=== PATIENT | male | born 1990 | race Caucasian/White ===

== ENCOUNTER 2022-07-07 08:42 | Emergency (ER) | payer OTHER, MEDICAID, SELFPAY ==
[2022-07-07] VITALS (24 sets, daily range): BP systolic 106–130; BP diastolic 66–82; PULSE 91–125; RESP 14–23; TEMP 37.1; O2SAT 98–100; BMI 19.8
--- NOTE | 2022-07-07 09:03 | ED.GENADULT ---
HPI - General Adult General Stated complaint: sent by [facility] heart issues, jaundice Time Seen by Provider: 07/07/22 08:46 Related Data Allergies Allergy/AdvReac Type Severity Reaction Status Date / Time No Known Drug Allergies Allergy Unverified 03/20/22 14:27 Patient History Medical History (Updated 07/06/22 @ 16:00 by Sharon Zaldivar PA-C) Immunization counseling Palpitations Travel advice encounter Social History Smoking Status: Never smoker Smoking Status: Never smoker Discharge Plan Departure Referrals: Nabil Varner DO [Primary Care Provider] -
--- NOTE | 2022-07-07 09:25 | ED_ITS ---
HPI - General Adult General Chief complaint: Abdominal Pain Stated complaint: sent by [facility] heart issues, jaundice Time Seen by Provider: 07/07/22 08:46 Source: patient and family Mode of arrival: Ambulatory History of Present Illness HPI narrative: 32-year-old gentleman with a history of gilbert's syndrome who presents with 2weeks of painless jaundice. He describes no fevers, cough, palpitations but has noticed that he has been tachycardic and describes his resting heart rate at about twice his usual baseline heart rate. He describes some mid epigastric/upper abdominal pain that feels like up pressure that also feels like it is causing increased reflux like symptoms. He has had no vomiting. Describes his stool as normal colored, volume, texture. He has had no headaches, weakness, paresthesias. He reports that he occasionally drinks an over the last couple of weeks got together with some friends and had 2 episodes where he drank to excess without vomiting or blackout episodes. Describes no recent trauma. He also notes that he has had increasing lower extremity edema which is unusual for him. Related Data Allergies Allergy/AdvReac Type Severity Reaction Status Date / Time No Known Drug Allergies Allergy Unverified 03/20/22 14:27 Review of Systems Review of Systems Narrative: Remainder of complete review of systems is otherwise unremarkable except for that included in the HPI. Patient History Medical History Gilbert's syndrome Palpitations Social History Smoking Status: Never smoker Smoking Status: Never smoker Substance Use Type: marijuana Exam Initial Vital Signs Initial Vital Signs: Vital Signs Pulse Rate 125 H 07/07/22 08:52 Pulse Oximetry 100 07/07/22 08:52 General: Healthy appearing, in no acute distress. Able to give a complete and coherent history. Well-nourished well-developed HEENT: Moist mucous membranes, notably jaundiced sclera with reactive pupils, Neck: No JVD, supple Respiratory: Lungs are clear to auscultation, no wheezing no rales no rhonchi. Full and symmetrical air movement Cardiac: Tachycardic without murmurs Abdomen: Soft, minimally tender over the upper abdomen without rebound or guarding. No appreciable hepatosplenomegaly. Good bowel tones, no flank pain Skin: Jaundice but otherwise Warm and dry, no rashes, no telangiectasias, no palmar erythema Neurologic: Grossly neurologically intact with no obvious asymmetries or abnormalities Extremities: No trauma, well perfused, 1+ pretibial edema Psych: Cooperative, appropriate insight and affect Course Orders Ordered: ED Orders 07/07/22 08:55 Bilirubin Conjugated Stat Bilirubin Direct Stat Complete Blood Count AUTO DIFF Stat Comprehensive Metabolic Panel Stat Ethanol (ETOH) Stat Lactate (Lactic Acid) Stat Lipase Stat Magnesium Stat 07/07/22 09:26 CT abdomen pelvis w con Stat 07/07/22 09:33 COVID19 -Nasal RAPID/Pre-Proc Stat 07/07/22 09:49 Blood Culture Stat Hepatitis Acute Panel Stat PTT [Partial Thromboplastin Time] Stat Prothrombin Time INR Stat 07/07/22 10:30 Ictotest Urine Stat Urinalysis and Microscopic Stat Urine Culture Stat 07/07/22 11:27 MRCP [MR abdomen wo/w con] Stat 07/07/22 16:48 BMP [Basic Metabolic Panel] Stat Discontinued Medications Sodium Chloride (Normal Saline 0.9%) 1,000 mls @ 1,000 mls/hr IV BOLUS ONE Stop: 07/07/22 10:24 Last Infusion: 07/07/22 11:28 Dose: 0 mls/hr Documented By: Admin: 07/07/22 10:33 Dose: 1,000 mls/hr Documented By: JOHANA POTASSIUM CHLORIDE IN WATER (Potassium Cl 10 Meq/100 Ml Radha) 10 meq in 100 mls @ 100 mls/hr IV Q1H MALLORIE Stop: 07/07/22 15:29 Last Admin: 07/07/22 16:46 Dose: 100 mls/hr Documented By: Infusion: 07/07/22 16:42 Dose: 0 mls/hr Documented By: Admin: 07/07/22 15:12 Dose: 100 mls/hr Documented By: Infusion: 07/07/22 15:08 Dose: 0 mls/hr Documented By: Admin: 07/07/22 14:03 Dose: 100 mls/hr Documented By: Infusion: 07/07/22 14:00 Dose: 100 mls/hr Documented By: Admin: 07/07/22 13:00 Dose: 100 mls/hr Documented By: JOHANA Sodium Chloride (Normal Saline 0.9%) 1,000 mls @ 1,000 mls/hr IV BOLUS ONE Stop: 07/07/22 17:07 Potassium Chloride (Potassium Chloride 20 Meq Tab) 40 meq PO NOW ONE Stop: 07/07/22 11:29 Last Admin: 07/07/22 13:05 Dose: 40 meq Documented By: JOHANA(2) Vital Signs Vital signs: Vital Signs - 8 hr 07/07/22 10:00 07/07/22 10:00 07/07/22 10:28 Pulse Rate 116 H Respiratory Rate Blood Pressure 121/77 128/78 Pulse Oximetry 99 07/07/22 10:28 07/07/22 10:30 07/07/22 10:30 Pulse Rate 111 H 110 H Respiratory Rate Blood Pressure 125/79 Pulse Oximetry 99 100 07/07/22 11:00 07/07/22 11:00 07/07/22 11:30 Pulse Rate 104 H Respiratory Rate Blood Pressure 119/76 123/82 Pulse Oximetry 100 07/07/22 11:30 07/07/22 12:00 07/07/22 12:00 Pulse Rate 105 H 109 H Respiratory Rate Blood Pressure 120/80 Pulse Oximetry 100 99 07/07/22 13:08 07/07/22 13:09 07/07/22 13:09 Pulse Rate 104 H 104 H Respiratory Rate Blood Pressure 110/67 Pulse Oximetry 98 99 07/07/22 13:30 07/07/22 13:30 07/07/22 14:00 Pulse Rate 102 H Respiratory Rate 16 Blood Pressure 111/70 107/68 Pulse Oximetry 99 07/07/22 14:00 07/07/22 14:30 07/07/22 14:30 Pulse Rate 102 H 100 H Respiratory Rate 14 14 Blood Pressure 111/67 Pulse Oximetry 99 100 07/07/22 15:00 07/07/22 15:00 07/07/22 15:29 Pulse Rate 102 H 99 H Respiratory Rate 23 19 Blood Pressure 110/72 Pulse Oximetry 99 100 07/07/22 15:29 07/07/22 15:30 07/07/22 15:30 Pulse Rate 98 H Respiratory Rate 21 Blood Pressure 109/72 109/74 Pulse Oximetry 100 07/07/22 15:52 07/07/22 15:52 07/07/22 16:00 Pulse Rate 106 H Respiratory Rate 16 Blood Pressure 108/74 111/72 Pulse Oximetry 100 07/07/22 16:00 07/07/22 16:30 07/07/22 16:30 Pulse Rate 96 H 97 H Respiratory Rate 17 21 Blood Pressure 110/69 Pulse Oximetry 100 99 07/07/22 17:00 07/07/22 17:00 Pulse Rate 97 H Respiratory Rate Blood Pressure 106/68 Pulse Oximetry 99 Medical Decision Making Lab Data Result diagrams: 07/07/22 08:55 07/07/22 16:48 Labs: Lab Results 07/07/22 07/07/22 07/07/22 Range/Units 08:55 08:55 08:55 WBC 7.6 (4.5-11.0) X10^3/uL RBC 3.48 L (4.5-5.9) X10^6/uL Hgb 11.3 L (13.5-17.5) g/dL Hct 32.3 L (41-53) % MCV 92.7 (80-100) fL MCH 32.5 (26-34) PG MCHC 35.0 (30-36) % RDW 17.2 H (11.6-14.8) % Plt Count 206 (150-400) X10^3/uL Neut % (Auto) 79.4 H (50-75) % Lymph % (Auto) 10.1 L (25-40) % [place] % (Auto) 10.3 (3-14) % Eos % (Auto) 0.0 L (2-4) % Baso % (Auto) 0.2 (0-2) % Neut # (Auto) 6000 (0701-5841) /uL Lymph # (Auto) 800 L (5760-1598) /uL [place] # (Auto) 800 (0-900) /uL Eos # (Auto) 0 (0-450) /uL Baso # (Auto) 0 (0-100) /uL PT (10.1-12.7) SECONDS INR (0.9-1.3) APTT (26-36) SECONDS Sodium 123 L (137-145) mmol/L Potassium 2.6 L* (3.4-5.1) mmol/L Chloride 76 L* (98-107) mmol/L Carbon Dioxide 35 H (22-32) mmol/L BUN 13 (9-20) mg/dL Creatinine 0.86 (0.66-1.25) mg/dL Estimated GFR > 60 (>60) mL/min BUN/Creatinine Ratio 15.1 (6-22) Glucose 130 H (70-100) mg/dL Lactate 6.0 H* (0.7-2.1) mmol/L Calcium 8.4 (8.4-10.2) mg/dL Magnesium 1.7 (1.6-2.3) mg/dL Total Bilirubin 7.3 H (0.2-1.3) mg/dL Direct Bilirubin (0.0-0.4) mg/dL Conjugated Bilirubin (0.0-0.3) md/dL AST 582 H (17-59) IU/L ALT 205 H (<50) IU/L Alkaline Phosphatase 342 H (38-126) U/L Total Protein 6.4 (6.3-8.2) g/dL Albumin 3.0 L (3.5-5.0) g/dL Globulin 3.4 (1.7-4.1) g/dL Albumin/Globulin Ratio 0.9 L (1.0-2.8) Lipase 735 H (23-300) U/L Urine Color Urine Appearance Urine pH (4.5-8.0) Ur Specific [place] (1.000-1.035) Urine Protein (Negative) Urine Glucose (UA) (Negative) g/dL Urine Ketones (NEGATIVE) Urine Occult Blood (Negative) Urine Nitrate (Negative) Urine Bilirubin (NEGATIVE) Ur Bilirubin Confirm (Negative) Urine Urobilinogen (0.2) E.U./dL Ur Leukocyte Esterase (NEGATIVE) Urine RBC (0-5/HPF) Urine WBC (0-5/HPF) Calcium Oxalate Crystal Urine Bacteria (None) Urine Mucus (Negative) Ur Culture Indicated? Ethyl Alcohol < 10 ( - 10) mg/dL SARS-CoV-2 (PCR) (Negative) 07/07/22 07/07/22 07/07/22 Range/Units 08:55 09:33 09:49 WBC (4.5-11.0) X10^3/uL RBC (4.5-5.9) X10^6/uL Hgb (13.5-17.5) g/dL Hct (41-53) % MCV (80-100) fL MCH (26-34) PG MCHC (30-36) % RDW (11.6-14.8) % Plt Count (150-400) X10^3/uL Neut % (Auto) (50-75) % Lymph % (Auto) (25-40) % [place] % (Auto) (3-14) % Eos % (Auto) (2-4) % Baso % (Auto) (0-2) % Neut # (Auto) (9661-2211) /uL Lymph # (Auto) (6611-3880) /uL [place] # (Auto) (0-900) /uL Eos # (Auto) (0-450) /uL Baso # (Auto) (0-100) /uL PT 13.6 H (10.1-12.7) SECONDS INR 1.2 (0.9-1.3) APTT 27 (26-36) SECONDS Sodium (137-145) mmol/L Potassium (3.4-5.1) mmol/L Chloride (98-107) mmol/L Carbon Dioxide (22-32) mmol/L BUN (9-20) mg/dL Creatinine (0.66-1.25) mg/dL Estimated GFR (>60) mL/min BUN/Creatinine Ratio (6-22) Glucose (70-100) mg/dL Lactate (0.7-2.1) mmol/L Calcium (8.4-10.2) mg/dL Magnesium (1.6-2.3) mg/dL Total Bilirubin (0.2-1.3) mg/dL Direct Bilirubin 5.5 H (0.0-0.4) mg/dL Conjugated Bilirubin 2.1 H (0.0-0.3) md/dL AST (17-59) IU/L ALT (<50) IU/L Alkaline Phosphatase (38-126) U/L Total Protein (6.3-8.2) g/dL Albumin (3.5-5.0) g/dL Globulin (1.7-4.1) g/dL Albumin/Globulin Ratio (1.0-2.8) Lipase (23-300) U/L Urine Color Urine Appearance Urine pH (4.5-8.0) Ur Specific [place] (1.000-1.035) Urine Protein (Negative) Urine Glucose (UA) (Negative) g/dL Urine Ketones (NEGATIVE) Urine Occult Blood (Negative) Urine Nitrate (Negative) Urine Bilirubin (NEGATIVE) Ur Bilirubin Confirm (Negative) Urine Urobilinogen (0.2) E.U./dL Ur Leukocyte Esterase (NEGATIVE) Urine RBC (0-5/HPF) Urine WBC (0-5/HPF) Calcium Oxalate Crystal Urine Bacteria (None) Urine Mucus (Negative) Ur Culture Indicated? Ethyl Alcohol ( - 10) mg/dL SARS-CoV-2 (PCR) Negative (Negative) 07/07/22 07/07/22 07/07/22 Range/Units 10:30 11:35 16:48 WBC (4.5-11.0) X10^3/uL RBC (4.5-5.9) X10^6/uL Hgb (13.5-17.5) g/dL Hct (41-53) % MCV (80-100) fL MCH (26-34) PG MCHC (30-36) % RDW (11.6-14.8) % Plt Count (150-400) X10^3/uL Neut % (Auto) (50-75) % Lymph % (Auto) (25-40) % [place] % (Auto) (3-14) % Eos % (Auto) (2-4) % Baso % (Auto) (0-2) % Neut # (Auto) (8934-3441) /uL Lymph # (Auto) (3653-0588) /uL [place] # (Auto) (0-900) /uL Eos # (Auto) (0-450) /uL Baso # (Auto) (0-100) /uL PT (10.1-12.7) SECONDS INR (0.9-1.3) APTT (26-36) SECONDS Sodium 123 L (137-145) mmol/L Potassium 3.4 (3.4-5.1) mmol/L Chloride 84 L (98-107) mmol/L Carbon Dioxide 36 H (22-32) mmol/L BUN 9 (9-20) mg/dL Creatinine 0.72 (0.66-1.25) mg/dL Estimated GFR > 60 (>60) mL/min BUN/Creatinine Ratio 12.5 (6-22) Glucose 98 (70-100) mg/dL Lactate 3.6 H (0.7-2.1) mmol/L Calcium 7.0 L (8.4-10.2) mg/dL Magnesium (1.6-2.3) mg/dL Total Bilirubin (0.2-1.3) mg/dL Direct Bilirubin (0.0-0.4) mg/dL Conjugated Bilirubin (0.0-0.3) md/dL AST (17-59) IU/L ALT (<50) IU/L Alkaline Phosphatase (38-126) U/L Total Protein (6.3-8.2) g/dL Albumin (3.5-5.0) g/dL Globulin (1.7-4.1) g/dL Albumin/Globulin Ratio (1.0-2.8) Lipase (23-300) U/L Urine Color Brown Urine Appearance Clear Urine pH 7.0 (4.5-8.0) Ur Specific [place] <=1.005 (1.000-1.035) Urine Protein 2+ H (Negative) Urine Glucose (UA) Trace H (Negative) g/dL Urine Ketones Trace H (NEGATIVE) Urine Occult Blood Trace-lysed (Negative) Urine Nitrate Negative (Negative) Urine Bilirubin 3+ H (NEGATIVE) Ur Bilirubin Confirm Positive H (Negative) Urine Urobilinogen 1.0 (0.2) E.U./dL Ur Leukocyte Esterase Trace H (NEGATIVE) Urine RBC 0-1/hpf (0-5/HPF) Urine WBC 1-5/hpf (0-5/HPF) Calcium Oxalate Crystal Moderate H Urine Bacteria Few (2-10) H (None) Urine Mucus 1+ H (Negative) Ur Culture Indicated? Specimen cultured Ethyl Alcohol ( - 10) mg/dL SARS-CoV-2 (PCR) (Negative) Imaging Data MRCP: Radiologist's Impression: FINDINGS:? Image quality:? Excellent.? ? Lung bases:? No basal pleural effusions.? Heart size is normal.? ? Solid organs:? Liver is enlarged without focal mass lesion.? No intra or extrahepatic bile duct dilatation.? Gallbladder wall is thickened, there is moderate abdominal ascites present.? No evidence of cholelithiasis. ? Pancreas is normal in morphology.? Spleen is normal in size and enhancement.? No adrenal nodules.? Both kidneys demonstrate normal size and enhancement, without hydronephrosis.? ? Nodes and vessels:? No retroperitoneal or mesenteric adenopathy by size criteria.? Aorta and inferior vena cava are normal in size.? ? Bowel and peritoneum:? Unenhanced bowel loops are normal in caliber.? Diffuse bowel wall thickening and enhancement noted.? No obstruction. ? Bones and soft tissues:? No ventral hernias.? Bone marrow is normal in overall signal.? IMPRESSION:? ? 1. Hepatomegaly without intrahepatic bile duct dilatation.? Moderate abdominal ascites. ? 2. Gallbladder wall as well as bowel wall thickening and enhancement probably related to ascites.? No bowel obstruction ? o ? ? ? Approved by: Jaron Gilbert M.D. on 07/07/2022 at 12:35 CT scan - abdomen/pelvis: Radiologist's Impression: FINDINGS: ? Lower thorax: The lung bases are clear.? Heart size normal.? No hiatal hernia. ? Liver:? Liver is enlarged 23.6 cm, there is micronodular scalloping of the hepatic capsule, consistent with cirrhosis.? Moderate abdominal and pelvic ascites present.? No intrahepatic bile duct dilatation. ? Biliary system:? No calcified cholelithiasis or pericholecystic inflammation.? No intra or extrahepatic bile duct dilatation. ? Pancreas:? Unremarkable without mass or inflammation evident. ? Spleen:? Normal in size and density. ? Adrenals:? Normal morphology and density. ? Reproductive system:? Unremarkable as visualized. ? Urinary system:? Normal renal size and attenuation. No renal calculi, hydronephrosis, or solid mass present.? Urinary bladder unremarkable. ? Gastrointestinal system:? The bowel is unremarkable without evidence of bowel obstruction or inflammation. The stomach appears unremarkable. ? Appendix:? No findings to suggest acute appendicitis. ? Peritoneal spaces:? No mesenteric or retroperitoneal adenopathy.? No free air.? No free fluid.? ? Vasculature:? The IVC, aorta and iliac vasculature are unremarkable. ? Abdominal wall:? Abdominal wall intact without evidence of ventral or inguinal hernias. ? Musculoskeletal:? Normal bone mineralization.? No acute fractures.? ? IMPRESSION: ? 1. Hepatomegaly and coarsening of the hepatic parenchyma probably reflects cirrhosis or hepatitis.? No intrahepatic bile duct dilatation.? Associated moderate ascites. ? Approved by: Jaron Gilbert M.D. on 07/07/2022 at 9:48? MDM Narrative Medical decision making narrative: 32-year-old gentleman with painless jaundice no fevers no signs or symptoms of infection. Initial lactic is 6.0. Suspect that this is metabolic but not sepsis. Will continue workup Lactic acid has come down nicely to 3.6. With volume his heart rate is coming down and his blood pressure has come up. He has been given both oral and IV potassium. Care is reviewed with Dr. Coburn, vascular sonographer at [facility]. He agrees that close outpatient follow-up is going to be safe at this time. Acute hepatitis panel is still pending. With the reports of cirrhosis, he did ask if I can do a diagnostic paracentesis. Bedside ultrasound shows a minimal amount of fluid only and I chose to not proceed with paracentesis in the emergency department. Labs repeated and potassium is up to 3.4. Sodium is still at 1:23 a.m. however he has absolutely no cognitive deficits. We talked about eating additional sodium and mild free water restriction. At this point I do believe he is safe for home discharge. He understands the need for follow-up with Gastroenterology and will return should he have any additional concerns or new findings. Discharge Plan Departure Patient Disposition: Home Clinical Impression: Elevated liver enzymes, Gilbert's syndrome, Abdominal ascites Instructions: DI for Cirrhosis Activity Restrictions/Additional Instructions: Thank you for coming in today Your liver enzymes are significantly elevated and you do have fluid in her belly, ascites. Fortunately, there is no evidence of acute obstruction, tumors or masses. Year acute hepatitis panel is still pending. You did have moderately low electrolytes in these have been relatively corrected. You do need to follow-up urgently with a vascular sonographer. I have spoken with Dr Coburn, vascular sonographer with the [facility]. He agrees that discharge home today is safe. I have messaged him and I do want you to contact his office on Saturday to set up an urgent appointment. Dr Coburn, [phone] [facility], [facility] If you find that you are getting worse or develop any new symptoms, please feel free to return to the emergency department for further evaluation. When you do meet Dr. Coburn, please do take the lab work and CT and MRI results from today's ER visit with you. Referrals: Nabil Varner, [Primary Care Provider] -
--- NOTE | 2022-07-07 09:26 | DI.CT.S_ITS ---
PROCEDURE: CT ABDOMEN PELVIS W CON INDICATIONS: painless jaundice TECHNIQUE: After the administration of oral and intravenous contrast, axial sections were acquired from the lung bases to the pubic symphysis. Coronal and sagittal reformats were performed. For radiation dose reduction, the following was used: automated exposure control, adjustment of mA and/or kV according to patient size. COMPARISON:None. FINDINGS: Lower thorax: The lung bases are clear. Heart size normal. No hiatal hernia. Liver: Liver is enlarged 23.6 cm, there is micronodular scalloping of the hepatic capsule, consistent with cirrhosis. Moderate abdominal and pelvic ascites present. No intrahepatic bile duct dilatation. Biliary system: No calcified cholelithiasis or pericholecystic inflammation. No intra or extrahepatic bile duct dilatation. Pancreas: Unremarkable without mass or inflammation evident. Spleen: Normal in size and density. Adrenals: Normal morphology and density. Reproductive system: Unremarkable as visualized. Urinary system: Normal renal size and attenuation. No renal calculi, hydronephrosis, or solid mass present. Urinary bladder unremarkable. Gastrointestinal system: The bowel is unremarkable without evidence of bowel obstruction or inflammation. The stomach appears unremarkable. Appendix: No findings to suggest acute appendicitis. Peritoneal spaces: No mesenteric or retroperitoneal adenopathy. No free air. No free fluid. Vasculature: The IVC, aorta and iliac vasculature are unremarkable. Abdominal wall: Abdominal wall intact without evidence of ventral or inguinal hernias. Musculoskeletal: Normal bone mineralization. No acute fractures. IMPRESSION: 1. Hepatomegaly and coarsening of the hepatic parenchyma probably reflects cirrhosis or hepatitis. No intrahepatic bile duct dilatation. Associated moderate ascites. Approved by: Jaron Gilbert M.D. on 07/07/2022 at 9:48
[2022-07-07 09:42] LABS: Bilirubin Conjugated 2.1 md/dL (0.0-0.3); Bilirubin Direct 5.5 mg/dL (0.0-0.4)
[2022-07-07 09:44] LABS: Albumin Globulin Ratio 0.9 (1.0-2.8); Alkaline Phosphatase 342 U/L (38-126); BUN Creatinine Ratio 15.1 (6-22); Bilirubin Total 7.3 mg/dL (0.2-1.3); Blood Urea Nitrogen 13 mg/dL (9-20); Calcium 8.4 mg/dL (8.4-10.2); Carbon Dioxide 35 mmol/L (22-32); Estimated Glomerular Filt Rate > 60 mL/min (>60); Ethanol (ETOH) < 10 mg/dL; Globulin 3.4 g/dL (1.7-4.1); Glucose 130 mg/dL (70-100); HEMOLYSIS < 15 (0-50); Lipase 735 U/L (23-300); Magnesium 1.7 mg/dL (1.6-2.3); Sodium 123 mmol/L (137-145); Total Protein 6.4 g/dL (6.3-8.2)
[2022-07-07 09:49] LABS: Aspartate Aminotransferase 582 IU/L (17-59)
[2022-07-07 09:51] LABS: Alanine Aminotransferase 205 IU/L (<50)
[2022-07-07 09:56] LABS: Potassium 2.6 mmol/L (3.4-5.1)
[2022-07-07 09:57] LABS: Chloride 76 mmol/L (98-107)
[2022-07-07 10:07] LABS: Add Manual Diff / Slide Review NO; Basophils Absolute Auto 0 /uL (0-100); Basophils Percent Auto 0.2 % (0-2); Eosinophils Absolute Auto 0 /uL (0-450); Hematocrit 32.3 % (41-53); Hemoglobin 11.3 g/dL (13.5-17.5); Lymphocytes Absolute Auto 800 /uL (1100-4500); Lymphocytes Percent Auto 10.1 % (25-40); Mean Corpuscular Hemoglobin 32.5 PG (26-34); Mean Corpuscular Volume 92.7 fL (80-100); Monocytes Absolute Auto 800 /uL (0-900); Monocytes Percent Auto 10.3 % (3-14); Neutrophils Absolute Auto 6000 /uL (1500-7000); Neutrophils Percent Auto 79.4 % (50-75); Platelet Count 206 X10^3/uL (150-400); Red Blood Cell Count 3.48 X10^6/uL (4.5-5.9); Red Cell Distribution Width 17.2 % (11.6-14.8); White Blood Cell Count 7.6 X10^3/uL (4.5-11.0)
[2022-07-07 10:08] LABS: INR 1.2 (0.9-1.3); Prothrombin Time 13.6 SECONDS (10.1-12.7)
[2022-07-07 10:11] LABS: PTT Partial Thromboplastin Tim 27 SECONDS (26-36)
[2022-07-07 10:13] LABS: COVID19 -Nasal RAPID Negative (Negative)
[2022-07-07] MEDS: SODIUM CHLORIDE 0.9% 1,000 ML 1000 ML IV ×2 (10:33→17:25)
[2022-07-07 10:43] LABS: Appearance Urine UA CLEAR; Bilirubin Urine UA 3+ (NEGATIVE); Color Urine UA BROWN; Glucose Urine UA TRACE g/dL (Negative); Ketones Urine UA TRACE (NEGATIVE); Leukocyte Esterase Urine UA TRACE (NEGATIVE); Nitrite Urine UA NEGATIVE (Negative); Occult Blood Urine UA TRACE-LYSED (Negative); Protein Urine UA 2+ (Negative); Specific Gravity Urine UA <=1.005 (1.000-1.035)
[2022-07-07 11:09] LABS: Ictotest Urine Positive (Negative)
[2022-07-07 11:10] LABS: Bacteria Urine Few (2-10); Calcium Oxalate Crystals Urine Moderate; Culture Indicated Urine Specimen Cultured; Mucus Urine 1+ (Negative); RBC Urine 0-1/HPF (0-5/HPF); WBC Urine 1-5/HPF (0-5/HPF)
--- NOTE | 2022-07-07 11:27 | DI.MRI.S_ITS ---
PROCEDURE: MR ABDOMEN WO/W CON INDICATIONS: obstructive jaundice TECHNIQUE: Coronal HASTE, axial 2D FLASH in- and [id number]; axial breath-hold T2 FSE. Dynamic axial VIBE during the administration of contrast; post-contrast coronal VIBE or 2D FLASH with fat saturation from the hepatic dome to the iliac crests. Optional diffusion weighted imaging and ADC may be performed. COMPARISON: [facility], CT, CT ABDOMEN PELVIS W CON, 07/07/2022, 10:06. FINDINGS: Image quality: Excellent. Lung bases: No basal pleural effusions. Heart size is normal. Solid organs: Liver is enlarged without focal mass lesion. No intra or extrahepatic bile duct dilatation. Gallbladder wall is thickened, there is moderate abdominal ascites present. No evidence of cholelithiasis. Pancreas is normal in morphology. Spleen is normal in size and enhancement. No adrenal nodules. Both kidneys demonstrate normal size and enhancement, without hydronephrosis. Nodes and vessels: No retroperitoneal or mesenteric adenopathy by size criteria. Aorta and inferior vena cava are normal in size. Bowel and peritoneum: Unenhanced bowel loops are normal in caliber. Diffuse bowel wall thickening and enhancement noted. No obstruction. Bones and soft tissues: No ventral hernias. Bone marrow is normal in overall signal. IMPRESSION: 1. Hepatomegaly without intrahepatic bile duct dilatation. Moderate abdominal ascites. 2. Gallbladder wall as well as bowel wall thickening and enhancement probably related to ascites. No bowel obstruction o Approved by: Jaron Gilbert M.D. on 07/07/2022 at 12:35
[2022-07-07 11:32] LABS: Reflexed Lactate in 2 Hours Y
[2022-07-07 12:39] LABS: Lactate 2HR (Lactic Acid Rflx) 3.6 mmol/L (0.7-2.1)
[2022-07-07] MEDS: POTASSIUM CHLORIDE IN WATER 10 MEQ/100 ML PIGGYBACK 100 MEQ IV ×4 (13:00→16:46)
[2022-07-07] MEDS: POTASSIUM CHLORIDE 20 MEQ TAB 40 MEQ PO (13:05)
[2022-07-07 17:04] LABS: HEMOLYSIS < 15 (0-50); Potassium 3.4 mmol/L (3.4-5.1)
[2022-07-07 17:05] LABS: BUN Creatinine Ratio 12.5 (6-22); Blood Urea Nitrogen 9 mg/dL (9-20); Carbon Dioxide 36 mmol/L (22-32); Chloride 84 mmol/L (98-107); Estimated Glomerular Filt Rate > 60 mL/min (>60); Glucose 98 mg/dL (70-100); Sodium 123 mmol/L (137-145)
[2022-07-08 09:11] LABS: HBsAg Screen Negative (Negative); Hepatitis A Antibody IgM Negative (Negative); Hepatitis B Core Antibody IgM Negative (Negative); Hepatitis C Antibody <0.1 s/co ratio (0.0-0.9)
== END 2022-07-07 18:09 | disposition home or self-care (01) ==
PROVIDERS: Emergency Provider Emergency Medicine; PCP Family Medicine
DX: R74.8 Abnormal levels of other serum enzymes (principal); R18.8 Other ascites; E80.4 Gilbert syndrome; R10.13 Epigastric pain; R00.0 Tachycardia, unspecified; Z20.822 Contact with and (suspected) exposure to COVID-19
CPT/HCPCS: 36415; 74177; 74183; 80048; 80053; 80074; 80320; 81001; 82248; 83605; 83690; 83735; 85025; 85610; 85730; 87040; 87086; 87635; 96360; 96361; 99284; C9803; Q9967